=== PATIENT | female | born 1965 | race Caucasian/White ===

== ENCOUNTER 2018-09-07 09:36 | Day surgery (SDC) | payer BC ==
[2018-09-02 13:32] VITALS: BMI 38.6
[~2018-09-07 09:36] MED LIST: LACTATED RINGERS 1,000 ML IV SCH; LIDOCAINE 1% 20 ML VIAL (10MG/ML) FOR IV START INTRADERMA PRN
[2018-09-07 10:11] VITALS: TEMP 97.5
[2018-09-07] MEDS ORDERED: PROPOFOL 10 MG/ML 20 ML VIAL IV ONE (11:00)
--- NOTE | 2018-09-07 11:22 | P.PCN ---
Date of Procedure: 09/07/18 Procedure(s) Performed: BRIEF HISTORY: Patient is a 52-year-old pleasant white female scheduled for an elective colonoscopy as a part of screening for colorectal neoplasia. PROCEDURE PERFORMED: Colonoscopy and snare polypectomy. PREOPERATIVE DIAGNOSIS: Screening for colon cancer. IV sedation per Anesthesia. PROCEDURE: After informed consent was obtained, the patient, was brought into the endoscopy unit. IV sedation was administered by Anesthesia under continuous monitoring. Digital rectal examination was normal. Initially the Olympus CF-160 flexible video colonoscope was then inserted in the rectum, gradually advanced into the cecum without any difficulty. Careful examination was performed as the scope was gradually being withdrawn. Ileocecal valve and the appendiceal orifice were visualized and appeared normal. Prep was excellent. Mucosa of the cecum, ascending colon, appeared normal. In the hepatic flexure there was a 2.5 cm flat polyp that was removed by snare polypectomy. Rest of the transverse colon, descending colon, sigmoid colon, and rectum appeared normal. Retroflexion was performed in the rectum and no lesions were seen. The patient tolerated the procedure well. IMPRESSION: 55 mm flat hepatic flexure polyp status post polypectomy Rest of the colon appeared normal RECOMMENDATIONS: Findings of this examination were discussed with the patient as well as a family. She was advised to follow up the biopsy results and have a repeat surveillance colonoscopy in 3 years..
[2018-09-07 11:25] VITALS: RESP 16
[2018-09-07 11:47] VITALS: BP 115/59; PULSE 74
== END 2018-09-07 12:01 | disposition home or self-care (01) ==
LOC: ORWHC2ENDO 09:36
PROVIDERS: ATTEND Internal Medicine Gastroenterology
DX: Z12.11 Encounter for screening for malignant neoplasm of colon (principal); K63.5 Polyp of colon; I10 Essential (primary) hypertension; K21.9 Gastro-esophageal reflux disease without esophagitis; M19.90 Unspecified osteoarthritis, unspecified site; C85.90 Non-Hodgkin lymphoma, unspecified, unspecified site; F17.210 Nicotine dependence, cigarettes, uncomplicated; Z90.710 Acquired absence of both cervix and uterus; Z79.1 Long term (current) use of non-steroidal anti-inflammatories (NSAID); Z79.899 Other long term (current) drug therapy; Z88.8 Allergy status to other drugs, medicaments and biological substances
CPT/HCPCS: 45385; 88305; J2704

== ENCOUNTER → 2019-03-07 | Outpatient (CLI) | payer MEDICAID ==
--- NOTE | 2019-03-07 10:48 | CT ---
EXAMINATION TYPE: CT ChestAbdPelvis w con DATE OF EXAM: 03/07/2019 COMPARISON: Non at this institution. HISTORY: follicular lymphoma for several years per patient. CT DLP: 1876.1 mGycm. Automated Exposure Control for Dose Reduction was Utilized. CONTRAST: CT scan of the thorax, abdomen and pelvis is performed with oral and with IV Contrast, patient inject ed with 100 mL of Isovue 300. FINDINGS: LUNGS: Patchy bibasilar linear scarring and/or atelectasis. No suspicious nodules or masses. No pleur al effusion or pneumothorax is seen bilaterally. MEDIASTINUM: There are no greater than 1 cm hilar or mediastinal lymph nodes. No cardiomegaly or pe ricardial effusion is seen. Coronary artery calcification is present which is noted marker for under lying coronary artery disease. Moderate peripheral noncalcified plaque left subclavian artery causing stenosis under 50% LIVER/GB: No significant abnormality is appreciated. PANCREAS: No significant abnormality is seen. SPLEEN: No significant abnormality is seen. ADRENALS: No significant abnormality is seen. KIDNEYS: No significant abnormality is seen. BOWEL: Oral contrast reaches level of the hepatic flexure. There is low lying cecum into the right an terior pelvis. There is no suspicious small or large bowel dilatation. GENITAL ORGANS: Uterus is surgically absent. LYMPH NODES: No greater than 1cm abdominal or pelvic lymph nodes are appreciated. Prominent but subce ntimeter group of lymph nodes left para-aortic space just below renal vessels on axial image 65 noted . Prominent lymph node anterior to IVC below renal vessels axial image 75 measures 1.5 x 0.7 cm. OSSEOUS STRUCTURES: Slight S-shaped scoliosis. Facet arthropathy lower lumbar spine. OTHER: Mild calcified plaque abdominal aorta extends into branch vessels. IMPRESSION: Spleen and liver are normal in size. No abnormal adenopathy clearly seen. If outside CT or PET/CT become available an addendum may be issued.
== END | disposition home or self-care (01) ==
LOC: RADCTMAIN 07:33
PROVIDERS: ATTEND Internal Medicine Hematology & Oncology
DX: C82.98 Follicular lymphoma, unspecified, lymph nodes of multiple sites (principal); Z88.8 Allergy status to other drugs, medicaments and biological substances
CPT/HCPCS: 71260; 74177

== ENCOUNTER → 2020-05-03 | Outpatient (CLI) | payer BC ==
[2020-05-03 16:18] LABS: Appearance,BF Cloudy; Color,BF Yellow; Nucleated Cells, Body Fluid 570 /uL; RBC, Body Fluid 630 /uL
[2020-05-03 16:27] LABS: Mononuclear WBC,Body Fluid 92 %; Polynuclear WBC,Body Fluid 8 %; Total Cells Counted,Body Fluid 100
== END | disposition home or self-care (01) ==
LOC: LABWHC1 10:11
PROVIDERS: ATTEND Physician Assistant
DX: M25.561 Pain in right knee (principal); M25.562 Pain in left knee; M17.0 Bilateral primary osteoarthritis of knee
CPT/HCPCS: 87070; 87075; 87205; 89050; 89060

== ENCOUNTER → 2020-05-06 | Outpatient (CLI) | payer BC ==
--- NOTE | 2020-05-07 09:01 | CT ---
EXAMINATION TYPE: CT ChestAbdPelvis w con DATE OF EXAM: 05/06/2020 COMPARISON: 03/07/2019 HISTORY: 54-year-old female C82.98 Lymphoma. Routine follow-up. Pt not reporting any issues. TECHNIQUE: Contiguous axial scanning of the chest, abdomen, and pelvis performed with IV Contrast, pa tient injected with 100 mL of Isovue 300. Delayed images through the kidneys were obtained. Coronal/s agittal reconstructions performed. CT DLP: 963 mGycm Automated exposure control for dose reduction was used. FINDINGS: CHEST: Heart normal size without pericardial effusion. Aorta normal caliber with conventional branching anatomy. Minimal atherosclerotic arch calcifications . No thoracic lymphadenopathy by CT size criteria. Some minimal strandy subpleural atelectasis in the inferior lingula. No consolidation or pleural effu mary. ABDOMEN: Liver enlarged at 20.4 cm. No focal lesion is identified. No biliary ductal dilatation. Portal venous system is patent. Adrenal glands, kidneys with extra renal pelvis on the left, spleen, and pancreas appear within adrián l limits. An aortocaval lymph node is redemonstrated measuring 1.7 x 1.0 cm versus 1.7 x 0.8 cm, previously, no t significantly changed, questionably minimally thicker. There is a left mid abdominal mesenteric lymph node just adjacent, axial image 75 measuring 1.7 x 1.0 cm versus 1.4 x 0.7 cm, previously. Left periaortic nodularity is relatively unchanged, in part related to varicosities. Numerous scattered nonenlarged and borderline enlarged mid mesenteric lymph nodes seem to have been p resent previously, for example, axial image 71. No dilated small bowel, free fluid, or free air. Mild to moderate atherosclerotic calcifications infrarenal abdominal aorta without aneurysm. Moderate stool burden. No pericolonic inflammatory change. PELVIS: Bladder partially distended. Uterus surgically absent. Both ovaries are visualized. No abnormal fluid collection in the pelvis. No pelvic lymphadenopathy seen by size criteria. BONES: Advanced degenerative change of both shoulders. Accentuated lumbar lordosis. There is a left L4 pars defect and hypertrophic facet arthropathy lower lumbar spine with grade 1, nearly grade 2 anterolisth esis at L4-L5. Moderate degenerative disc disease mid thoracic spine. No osseous destructive process seen. IMPRESSION: 1. CONTINUED FOLLOW-UP RECOMMENDED. THE PREVIOUS PROMINENT AORTOCAVAL LYMPH NODE IN THE RETROPERITONE UM IS MINIMALLY THICKER AT 1.7 X 1.0 CM (VERSUS 1.7 X 0.8 CM, PREVIOUSLY). A LEFT MID MESENTERIC LYMP H NODE IN THE ABDOMEN IS MINIMALLY LARGER AT 1.7 X 1.0 CM (VERSUS 1.4 X 0.7 CM, PREVIOUSLY). ADDITION AL SCATTERED NONENLARGED AND BORDERLINE SIZED MID MESENTERIC LYMPH NODES ARE SIMILAR. 2. LEFT L4 PARS DEFECT AND HYPERTROPHIC FACET ARTHROPATHY WITH A GRADE 1, NEARLY GRADE 2 ANTEROLISTHE SIS AT L4-L5.
== END | disposition home or self-care (01) ==
LOC: RADCTMAIN 16:33
PROVIDERS: ATTEND Internal Medicine Hematology & Oncology
DX: R59.0 Localized enlarged lymph nodes (principal); C82.98 Follicular lymphoma, unspecified, lymph nodes of multiple sites; Z88.8 Allergy status to other drugs, medicaments and biological substances
CPT/HCPCS: 71260; 74177; Q9967

== ENCOUNTER → 2021-07-21 | Outpatient (CLI) | payer BC ==
--- NOTE | 2021-07-25 11:43 | MM ---
Reason for exam: screening (asymptomatic). Last mammogram was performed 2 years and 10 months ago. History: Patient history of other cancer. Physical Findings: A clinical breast exam by your physician is recommended on an annual basis and results should be correlated with mammographic findings. MG 3D Screening Mammo W/Cad Bilateral CC and MLO view(s) were taken. Prior study comparison: September 29, 2018, mammogram, performed at [facility]. May 23, 2015, mammogram, performed at [facility]. There are scattered fibroglandular densities. There is no discrete abnormality. ASSESSMENT: Negative, BI-RAD 1 RECOMMENDATION: Routine screening mammogram of both breasts in 1 year.
== END | disposition home or self-care (01) ==
LOC: RADMAMWWP 07:10
PROVIDERS: ATTEND Internal Medicine Hematology & Oncology
DX: Z12.31 Encounter for screening mammogram for malignant neoplasm of breast (principal)
CPT/HCPCS: 77063; 77067

== ENCOUNTER 2021-08-20 17:00 | Emergency (ER) | payer BC ==
[2021-08-20 17:35] VITALS: TEMP 98.3
--- NOTE | 2021-08-20 18:12 | CT ---
EXAMINATION TYPE: CT brain wo con CT DLP: 1074.4 mGycm, Automated exposure control for dose reduction was used. DATE OF EXAM: 08/20/2021 5:52 PM COMPARISON: None. CLINICAL INDICATION:Female, 55 years old with history of Numbness to face 2 days., Left side facial n umbness. TECHNIQUE: Brain: Multiple axial CT images of the brain were obtained without IV contrast. FINDINGS: Brain: Extra-axial spaces: No abnormal extra-axial fluid collections. Ventricular system: Within normal limits Cerebral parenchyma: No acute intraparenchymal hemorrhage or mass effect. The pina-white junction is well differentiated. Cerebellum: Unremarkable. Mass effect: No evidence of midline shift. Intracranial vasculature: Vascular occlusion device in the left middle cranial fossa. Atherosclerosis of the internal carotid arteries Soft tissues: Postsurgical changes of the left scalp. Calvarium/osseous structures: No depressed skull fracture. Left-sided craniotomy changes. Paranasal sinuses and mastoid air cells: Mild scattered paranasal sinus disease. Visualized orbits: Orbital contents are intact. IMPRESSION: 1. No acute intracranial process. 2. Left craniotomy surgical changes with vascular clip in the left middle cranial fossa.
--- NOTE | 2021-08-20 21:57 | ED ---
Neuro HPI - General Chief Complaint: Neuro Symptoms/Deficit Stated Complaint: Facial numbness Time Seen by Provider: 08/20/21 21:29 Source: patient Mode of arrival: ambulatory Limitations: no limitations - History of Present Illness Is the patient presenting with stroke symptoms?: No Onset/Timin -: days(s) Initial Comments: This patient is a 55-year-old woman who presents with complaint that the left side of her face is feeling calm. This had started approximately 3 days ago now. Patient indicates the left perioral and infra orbital area as well as pre- auricular. She denies any trauma. No other symptoms. No change in vision, speech or swallowing. No symptoms to the remainder of the body. 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 She is denying pain. Location: left face History of same: Yes Place: home Severity: moderate Quality: numb Improves With: none Worsens With: none On Anticoagulants: No Context: gradual onset Associated Symptoms: denies other symptoms Treatments Prior to Arrival: none - Related Data Home Medications: Home Medications Medication Instructions Recorded Confirmed Acetaminophen [Tylenol Extra 1,000 mg PO HS PRN 09/02/18 09/07/18 Strength] Fiber Cap 1 tab PO DAILY 09/02/18 09/02/18 L.acidoph,Paracasei, B.lactis 1 each PO DAILY 09/02/18 09/02/18 [Probiotic] Naproxen Sodium [Aleve] 220 mg PO Q12HR PRN 09/02/18 09/02/18 atenoloL [Tenormin] 50 mg PO HS 09/02/18 09/02/18 hydroCHLOROthiazide [Hydrodiuril] 25 mg PO DAILY 09/02/18 09/02/18 Allergies/Adverse Reactions: Allergies Allergy/AdvReac Type Severity Reaction Status Date / Time ether Allergy Rash/Hives/ Verified 08/20/21 17:34 itching lisinopril Allergy Anaphylaxis Verified 08/20/21 17:34 Review of Systems ROS Statement: Those systems with pertinent positive or pertinent negative responses have been documented in the HPI. ROS Other: All systems not noted in ROS Statement are negative. Constitutional: Denies: fever, chills Eyes: Denies: eye pain, eye discharge, vision change ENT: Denies: ear pain, hearing loss Respiratory: Denies: cough, dyspnea Cardiovascular: Denies: chest pain Gastrointestinal: Denies: abdominal pain, nausea, vomiting Musculoskeletal: Denies: back pain Skin: Denies: rash Neurological: Reports: numbness. Denies: headache, weakness, confusion, vertigo General Exam Limitations: no limitations General appearance: alert, in no apparent distress Head exam: Present: atraumatic, normocephalic Eye exam: Present: normal appearance. Absent: scleral icterus, conjunctival injection ENT exam: Present: normal oropharynx Neck exam: Present: normal inspection Respiratory exam: Present: normal lung sounds bilaterally. Absent: respiratory distress, wheezes, rales, rhonchi, stridor Cardiovascular Exam: Present: regular rate, normal rhythm, normal heart sounds. Absent: systolic murmur, diastolic murmur, rubs, gallop Extremities exam: Present: normal inspection Neurological exam: Present: alert, oriented X3, CN II-XII intact, other (Patient having some numbness through the maxillary branch of cranial nerve V on the left side.). Absent: motor sensory deficit Skin exam: Present: warm, dry, intact, normal color. Absent: rash Stroke MDM - Lab Data Patient had been sent for CT directly by Dr. Valladares. I reviewed the results with patient and recommends follow up with neurology and is MRI study. Discussed appropriate further care and follow-up swallows a return parameters. Past Medical History Past Medical History: Cancer, GERD/Reflux, Hypertension, Osteoarthritis (OA) Additional Past Medical History / Comment(s): lymphoma-"low grade" History of Any Multi-Drug Resistant Organisms: None Reported Past Surgical History: Hernia Repair, Hysterectomy Additional Past Surgical History / Comment(s): open craniotomy with aneurysm clip, laparotomy, left inguinal hernia, neck biopsy Past Anesthesia/Blood Transfusion Reactions: No Reported Reaction Past Psychological History: No Psychological Hx Reported Smoking Status: Former smoker Past Alcohol Use History: Rare Past Drug Use History: None Reported - Past Family History Father Family Medical History: Cancer Course Vital Signs 08/20/21 08/20/21 17:32 22:08 Temperature 98.3 F Pulse Rate 59 L 60 Respiratory 20 16 Rate Blood Pressure 162/95 144/83 O2 Sat by Pulse 100 100 Oximetry Disposition Clinical Impression: Peripheral neuropathy Disposition: HOME SELF-CARE Condition: Good Instructions (If sedation given, give patient instructions): Paresthesia (ED) Is patient prescribed a controlled substance at d/c from ED?: No Referrals: Kashif Minor MD [Primary Care Provider] - 1-2 days Tyra Coley MD [STAFF PHYSICIAN] - 1-2 days
[2021-08-20 22:10] VITALS: BP 144/83; PULSE 60; RESP 16
== END 2021-08-20 22:10 | disposition home or self-care (01) ==
LOC: EC 17:00
DX: G62.9 Polyneuropathy, unspecified (principal); I10 Essential (primary) hypertension; Z87.891 Personal history of nicotine dependence; Z88.8 Allergy status to other drugs, medicaments and biological substances; Z79.899 Other long term (current) drug therapy
CPT/HCPCS: 70450; 99284

== ENCOUNTER → 2022-01-07 | Outpatient (CLI) | payer BC ==
--- NOTE | 2022-01-07 10:23 | XR ---
EXAMINATION TYPE: XR chest 2V DATE OF EXAM: 01/07/2022 COMPARISON: NONE TECHNIQUE: PA and lateral views submitted. HISTORY: Pain FINDINGS: Hypertrophic degenerative changes nephropathy of the shoulder. Curvature of spine scoliosis. Heart si ze normal. No failure or pleural effusion. No pneumothorax. IMPRESSION: 1. No acute process.
== END | disposition home or self-care (01) ==
LOC: RADXRMAIN 09:46
PROVIDERS: ATTEND Internal Medicine
DX: Z01.818 Encounter for other preprocedural examination (principal)
CPT/HCPCS: 71046

== ENCOUNTER → 2022-01-23 | Outpatient (CLI) | payer BC ==
[2022-01-23 17:53] LABS: Anion Gap 10.8 mmol/L (10.00-18.00); Carbon Dioxide 27.4 mmol/L (20.0-27.5); Potassium 3.7 mmol/L (3.5-5.5)
== END | disposition home or self-care (01) ==
LOC: LABWHC1 09:57
PROVIDERS: ATTEND Internal Medicine
DX: E87.1 Hypo-osmolality and hyponatremia (principal)
CPT/HCPCS: 36415; 80051

== ENCOUNTER → 2022-01-30 | Outpatient (CLI) | payer BC ==
[2022-01-30 23:29] LABS: Basophils # (A) 0.07 X 10*3/uL (0.00-0.10); Eosinophils # (A) 0.08 X 10*3/uL (0.04-0.35); Eosinophils % (A) 1.2 %; HCT 36.4 % (37.2-46.3); Immature Grans, Automated 0.3 %; Lymphocytes # (A) 2.13 X 10*3/uL (0.90-5.00); Lymphocytes % (A) 30.9 %; MCH 30.4 pg (27.0-32.0); MCV 92.2 fL (80.0-97.0); Mean Platelet Volume 10.6 fL (9.5-12.2); Monocytes % (A) 5.8 %; NRBC Per 100 WBC 0 /100 WBCS (0.0-0.0); Neutrophils % (A) 60.8 %; Platelet Count 249 X 10*3/uL (140-440); RBC 3.95 X 10*6/uL (4.10-5.20); RDW 12.8 % (11.5-14.5)
== END | disposition home or self-care (01) ==
LOC: LABWHC1 15:17
PROVIDERS: ATTEND Internal Medicine
DX: Z01.812 Encounter for preprocedural laboratory examination (principal)
CPT/HCPCS: 36415; 85025

== ENCOUNTER → 2022-03-06 | Outpatient (CLI) | payer BC ==
--- NOTE | 2022-03-08 11:24 | CT ---
EXAMINATION TYPE: CT ChestAbdPelvis w con CT DLP: 1996 mGycm, Automated exposure control for dose reduction was used. DATE OF EXAM: 03/06/2022 6:19 PM COMPARISON: 05/06/2020. CLINICAL INDICATION:Female, 56 years old with history of LYMPHOMA C82.98, Follow up for lymphoma Technique: Multiple axial images of the chest, abdomen, and pelvis were obtained. Two-dimensional cor onal and sagittal reconstructions were obtained. Contrast used:100cc mL of Isovue 300 with IV Contrast, Oral contrast used: with Oral Contrast Findings: CHEST: LUNGS/ PLEURA: The lung parenchyma appears unremarkable. No focal consolidation, pneumothorax or ple ural effusion. AIRWAY: Patent and unremarkable. HEART: Size within normal limits. MEDIASTINUM: No gross evidence of adenopathy. VASCULATURE: No aortic aneurysm. MUSCULOSKELETAL: No acute osseous abnormalities. Degeneration changes of the shoulders with bone-on-b one articulation and subchondral cystic changes. Cystic lesion in the left humeral head measuring up to 2.0 cm similar likely on a degenerative basis. There is a large right joint effusion which extends inferiorly. SOFT TISSUES/LYMPH NODES: Unremarkable. LOWER NECK: No significant findings. ABDOMEN: ABDOMEN LIVER: Unremarkable GALLBLADDER AND BILE DUCTS: Unremarkable. PANCREAS: Unremarkable. SPLEEN: Unremarkable. ADRENAL GLANDS: Unremarkable. KIDNEYS AND URETERS: No evidence of hydronephrosis or renal calculus. The ureters are unremarkable. PELVIS BLADDER: Unremarkable REPRODUCTIVE: Unremarkable. ABDOMEN & PELVIS STOMACH AND BOWEL: No evidence of bowel obstruction. Large amount stool seen throughout the colon. PERITONEUM: No evidence of pneumoperitoneum or free fluid. VASCULATURE: Mild atherosclerotic calcifications are present throughout the abdominal aorta and its b ranches. MUSCULOSKELETAL: No acute osseous abnormalities LYMPH NODES: Persistent lymph nodes are seen in the mesentery measuring up to 6 mm in short axis. Ano ther more dominant one measures up to 9 mm x 15 mm and is felt to also be similar. Left retroperitone al soft tissue near the left renal sinus. Measures similarly at 8 mm in short axis. SOFT TISSUE/ABDOMINAL WALL: Unremarkable IMPRESSION: Similar mesenteric prominent lymph nodes given bowel positioning and slice flexion. Consider follow-u p PET/CT for metabolic activity check.
== END | disposition home or self-care (01) ==
LOC: RADCTMAIN 15:20
PROVIDERS: ATTEND Internal Medicine Hematology & Oncology
DX: C82.98 Follicular lymphoma, unspecified, lymph nodes of multiple sites (principal)
CPT/HCPCS: 71260; 74177; Q9967 ×2

== ENCOUNTER → 2023-03-30 | Outpatient (CLI) | payer BC ==
--- NOTE | 2023-04-06 10:55 | CT ---
EXAMINATION TYPE: CT ChestAbdPelvis w con CT DLP: 1474.4 mGycm, Automated exposure control for dose reduction was used. DATE OF EXAM: 03/30/2023 11:12 AM COMPARISON: CT chest abdomen pelvis 03/06/2022 and before CLINICAL INDICATION:Female, 57 years old with history of C82.98 lymphoma; PH, lymphoma TECHNIQUE: Multiple axial images of the chest, abdomen, and pelvis were obtained. Two-dimensional cor onal and sagittal reconstructions were obtained. Contrast used:100 mL of Isovue 300 with IV Contrast, Oral contrast used: with Oral Contrast FINDINGS: CHEST: LUNGS/ PLEURA: The lung parenchyma shows no suspicious nodules or masses. No focal consolidation, pn eumothorax or pleural effusion. AIRWAY: Patent and unremarkable. HEART: Heart size upper normal. Moderate coronary artery calcifications.. MEDIASTINUM: No gross evidence of adenopathy. VASCULATURE: Mild/moderate atherosclerotic calcifications of the aorta and proximal branch vessels. Mixed plaque in the proximal left subclavian artery with about 50% stenosis. MUSCULOSKELETAL: No acute osseous abnormalities. Moderate to severe degenerative changes of the shoul ders with [id number] articulation and subchondral cystic changes. Cystic 2 cm lesion in the left hu meral head appears stable, likely degenerative. Moderate to large right glenohumeral joint effusion. SOFT TISSUES/LYMPH NODES: Unremarkable soft tissues. No enlarged axillary lymph nodes. LOWER NECK: No significant findings. ABDOMEN: ABDOMEN LIVER: Unremarkable GALLBLADDER AND BILE DUCTS: Unremarkable. PANCREAS: Unremarkable. SPLEEN: Unremarkable. ADRENAL GLANDS: Stable without evidence of mass.. KIDNEYS AND URETERS: Kidneys enhance symmetrically. No evidence of mass or hydronephrosis. PELVIS BLADDER: Unremarkable REPRODUCTIVE: The uterus appears surgically absent. ABDOMEN & PELVIS STOMACH AND BOWEL: No evidence of bowel obstruction. Large amount of stool seen throughout the colon. PERITONEUM: No evidence of pneumoperitoneum or free fluid. VASCULATURE: Moderate atherosclerotic calcifications are present throughout the abdominal aorta and i ts branches. MUSCULOSKELETAL: No acute osseous abnormalities . Mild/moderate changes greatest in the lower lumbar spine. LYMPH NODES: Mildly enlarged lymph nodes again seen in the mesentery measuring up to 7 mm in short ax is. No new or enlarging nodes. Left para-aortic retroperitoneal node in the infrarenal location with a component measuring up to 8.5 mm, essentially stable. SOFT TISSUE/ABDOMINAL WALL: Unremarkable IMPRESSION: 1. Stable appearance of the chest without evidence of active malignancy/metastatic disease. 2. Similar appearance of the abdomen and pelvis, with stable mildly prominent mesenteric and retrope ritoneal nodes. 3. No new finding to suggest recurrent/metastatic disease.
== END | disposition home or self-care (01) ==
LOC: RADCTMAIN 09:23
PROVIDERS: ATTEND Internal Medicine Hematology & Oncology
DX: C82.98 Follicular lymphoma, unspecified, lymph nodes of multiple sites (principal); I10 Essential (primary) hypertension; E78.5 Hyperlipidemia, unspecified; M12.9 Arthropathy, unspecified
CPT/HCPCS: 71260; 74177; Q9967

== ENCOUNTER → 2023-12-21 | Outpatient (CLI) | payer BC ==
--- NOTE | 2023-12-21 09:26 | MM ---
Reason for Exam: Screening (asymptomatic). Last mammogram was performed 2 year(s) and 5 month(s) ago. Patient History: Menarche at age 14. First Full-Term at age 24. Hysterectomy at age 44. Other cancer. Risk Values: Ruth 5 year model risk: 1.1%. NCI Lifetime model risk: 7.2%. Prior Study Comparison: 05/23/2015 Screening Mammogram, [facility] [place]. 09/29/2018 Screening Mammogram, [facility] [place]. 07/21/2021 Bilateral Screening Mammogram, [facility]. Tissue Density: There are scattered areas of fibroglandular density. Findings: Analyzed By CAD. There is no suspicious group of microcalcifications or new suspicious mass in either breast. Overall Assessment: Negative, BI-RAD 1 Management: Screening Mammogram of both breasts in 1 year. . Patient should continue monthly self-breast exams. A clinical breast exam by your physician is recommended on an annual basis. This exam should not preclude additional follow-up of suspicious palpable abnormalities. Note on Ruth scores and lifetime risk: 1. A Ruth score greater than 3% is considered moderate risk. If this is the case, consider specialist referral to assess eligibility for a risk reducing agent. 2. If overall lifetime risk for the development of breast cancer is 20% or higher, the patient may qualify for future screening with alternating mammogram and breast MRI. [facility], , 12/21/2023 9:22 AM. Electronically signed and approved by: Ashok Waldron M.D. Radiologis
== END | disposition home or self-care (01) ==
LOC: RADMAMWWP 07:03
PROVIDERS: ATTEND Internal Medicine Hematology & Oncology
DX: Z12.31 Encounter for screening mammogram for malignant neoplasm of breast
CPT/HCPCS: 77063; 77067

== ENCOUNTER → 2024-04-10 | Outpatient (CLI) | payer BC ==
--- NOTE | 2024-04-10 17:37 | CT ---
EXAMINATION TYPE: CT ChestAbdPelvis w con DATE OF EXAM: 04/10/2024 5:02 PM COMPARISON: 03/30/2023. CLINICAL INDICATION: Female, 58 years old with history of C82.98 lymphoma; PHH, Hx of lymphoma X 12 y ears Technique: CT ChestAbdPelvis w con; Multiple axial images were obtained. Two-dimensional coronal and sagittal reconstructions were obtained. Contrast used:100 mL of Isovue 300 with IV Contrast, (None if empty) Oral contrast used: with Oral Contrast CT DLP: 944.0 mGycm, Automated exposure control for dose reduction was used. Findings: CHEST: LUNGS/ PLEURA: No focal consolidation, pneumothorax or pleural effusion. AIRWAY: Patent and unremarkable. HEART: Size within normal limits. MEDIASTINUM: No gross evidence of adenopathy. VASCULATURE: No aortic aneurysm. Mild atherosclerosis of the left subclavian artery just after its o rigin. No evidence for occlusion this is similar to prior. MUSCULOSKELETAL: No acute osseous abnormalities. Large severe degeneration changes in the shoulders w ith joint space narrowing and osteophyte formation. SOFT TISSUES/LYMPH NODES: Unremarkable. LOWER NECK: No significant findings. ABDOMEN: ABDOMEN LIVER: Unremarkable GALLBLADDER AND BILE DUCTS: Unremarkable. PANCREAS: Unremarkable. SPLEEN: Unremarkable. ADRENAL GLANDS: Unremarkable. KIDNEYS AND URETERS: No evidence of hydronephrosis or renal calculus. The ureters are unremarkable. PELVIS BLADDER: Unremarkable REPRODUCTIVE: The uterus is surgically absent. ABDOMEN & PELVIS STOMACH AND BOWEL: No evidence of bowel obstruction. Large amount stool in the cecum which is within the pelvis. PERITONEUM/RETROPERITONEUM: No evidence of pneumoperitoneum or free fluid. VASCULATURE: No evidence of aortic aneurysm. MUSCULOSKELETAL: No acute osseous abnormalities, and 1 anterolisthesis of L4 and L5. Spondylolysis pr esent. Scattered degeneration with Schmorl's nodes joint space narrowing osteophyte formation. LYMPH NODES: Similar appearance of the retroperitoneal lymph nodes to prior. No new or enlarging lymp h nodes definitively visualized. No greater than 1.0 cm in short axis lymph node identified. SOFT TISSUE/ABDOMINAL WALL: Unremarkable IMPRESSION: No new or enlarging lymph nodes. No evidence for recurrence. [facility], , 04/10/2024 5:35 PM
== END | disposition home or self-care (01) ==
LOC: RADCTMAIN 14:35
PROVIDERS: ATTEND Internal Medicine Hematology & Oncology
DX: C82.98 Follicular lymphoma, unspecified, lymph nodes of multiple sites (principal); E78.5 Hyperlipidemia, unspecified; M12.9 Arthropathy, unspecified; I10 Essential (primary) hypertension
CPT/HCPCS: 71260; 74177; Q9967